=== PATIENT | male | born 1985 | race Caucasian/White ===

== ENCOUNTER 2019-12-13 14:59 | Emergency (ER) | payer OTHER, SELFPAY ==
--- NOTE | 2019-12-13 15:29 | ED.DENTAL ---
HPI - Dental/Oral General Chief complaint: Dental/Oral Stated complaint: Tooth Time Seen by Provider: 12/13/19 15:29 Source: patient and RN notes reviewed History of Present Illness HPI Narrative: Patient is a 34-year-old male who presents the urgent care with complaints of left lower dental pain. Patient states that he has a lot of pain in the left ear as well. Patient states that he is aware he needs wisdom teeth removed and they are supposed to be removed on the of this month. Patient has been taking Tylenol, ibuprofen and using Orajel for the pain. Patient is also been using Peridex mouthwash. No other acute complaints. No acute distress noted. Patient read the plan of care. Related Data Allergies Allergy/AdvReac Type Severity Reaction Status Date / Time No Known Allergies Allergy Unverified 08/23/18 18:37 Review of Systems Review of Systems: Narrative: CONSTITUTIONAL: Denies fever, chills, or sweats. EYES: Denies visual changes, redness, or discharge. ENT: Reports of left otalgia and left lower dental pain CARDIOVASCULAR: Denies chest pain, palpitations, or edema. RESPIRATORY: Denies cough or dyspnea. GASTROINTESTINAL: Denies abdominal pain, nausea, vomiting, or diarrhea. GENITOURINARY: Denies dysuria or hematuria. SKIN: Denies rash or itching. MUSCULOSKELETAL: Denies back pain, joint pain, or myalgia. NEUROLOGIC: Denies headache, numbness, or weakness. All other systems reviewed are negative, except as documented in HPI. [facility] Family History Family History (Updated 12/24/17 @ 10:16 by DOCTOR UNKNOWN) Father Diabetes mellitus Mother Diabetes mellitus Hypertension Social History Social History Smoking status: Never smoker Alcohol intake: never Comments At the time of my signature, I reviewed and agree with the nursing past medical, surgical, social, and family history. There is no relevant family history pertinent to the patient complaint. Exam Narrative: Exam Narrative: GENERAL: This is a well-nourished, well-developed patient, in no apparent distress. HEAD: normocephalic, atraumatic. EYES: PERRL. Sclera clear/white. Vision is grossly intact. EARS: External ears normal, auditory canals clear and without drainage, moderately injected and erythemic left TM with mild effusion, right TM normal without perforation. Hearing grossly intact. NOSE: External nose normal with no obvious nasal discharge, nares without redness, no rhinorrhea. DENTAL: Control avulsion noted to tooth #17 with obvious carious lesions and no notable abscess THROAT: Mucous membranes moist, posterior pharynx clear. NECK: Neck supple SKIN: warm, intact with no suspicious lesions or rash, good texture and turgor. NEURO: awake, alert, and oriented to person, place and time. There were no obvious focal neurologic abnormalities. EXTREMITIES: No clubbing, cyanosis, or edema. Course Vital Signs Vital signs: Vital Signs Temperature 97.0 F L 12/13/19 15:30 Pulse Rate 99 12/13/19 15:30 Respiratory Rate 18 12/13/19 15:30 Blood Pressure 150/94 H 12/13/19 15:30 Pulse Oximetry 100 12/13/19 15:30 Temperature 97.0 F L 12/13/19 15:30 Pulse Rate 99 12/13/19 15:30 Respiratory Rate 18 12/13/19 15:30 Blood Pressure 150/94 H 12/13/19 15:30 Pulse Oximetry 100 12/13/19 15:30 Reviewed?patient is informed that they may have pre-hypertension or hypertension based on a blood pressure reading in the department. I recommend the patient call the primary care provider listed on their discharge instructions or a physician of their choice this week to arrange follow-up for further evaluation of possible pre-hypertension or hypertension. MDM - Dental/Oral MDM Narrative Medical decision making narrative: Advised the patient to complete oral antibiotic regimen as prescribed for left otitis/ear infection. No notable abscess to the dentition however you need to follow-up with a dentist as directed on the for further omar
[2019-12-13 15:30] VITALS: BP 150/94; PULSE 99; RESP 18; TEMP 36.1; O2SAT 100
== END 2019-12-13 15:45 | disposition home or self-care (01) ==
PROVIDERS: Emergency Provider Nurse Practitioner Family
DX: K02.9 Dental caries, unspecified (principal); H66.92 Otitis media, unspecified, left ear; D66 Hereditary factor VIII deficiency
CPT/HCPCS: 99213; G0463

== ENCOUNTER 2021-07-17 09:04 | Emergency (ER) | payer OTHER, SELFPAY ==
[2021-07-17 09:10] VITALS: BP 131/89; PULSE 92; RESP 20; TEMP 36.3; O2SAT 100
--- NOTE | 2021-07-17 09:12 | ED.URI ---
HPI - URI/Sore Throat General Chief Complaint: Upper Respiratory Infection Stated Complaint: Sore Throat Time Seen by Provider: 07/17/21 09:12 Source: patient Mode of arrival: ambulatory Limitations: no limitations History of Present Illness HPI Narrative: 36 yo M presents with c/o sore throat, fatigue since last night. Pt reports that his son and both diagnosed with strep this week. pt afebrile. no other complaints. All systems reviewed and negative except as noted above. Related Data Home Medications Medication Instructions Recorded Confirmed antihemo.FVIII,full length peg unit IV 07/17/21 [Adynovate] escitalopram oxalate 10 mg PO DAILY 07/17/21 07/17/21 propranolol 20 mg PO DAILY 07/17/21 07/17/21 Allergies Allergy/AdvReac Type Severity Reaction Status Date / Time No Known Allergies Allergy Unverified 08/23/18 18:37 Review of Systems Review of Systems: CONSTITUTIONAL: Denies fever, chills, or sweats. Reports fatigue. EYES: Denies visual changes, redness, or discharge. ENT: Denies rhinorrhea, congestion, and ear pain. Reports sore throat. CARDIOVASCULAR: Denies chest pain, palpitations, or edema. RESPIRATORY: Denies cough or dyspnea. GASTROINTESTINAL: Denies abdominal pain, nausea, vomiting, or diarrhea. GENITOURINARY: Denies dysuria or hematuria. SKIN: Denies rash or itching. MUSCULOSKELETAL: Denies back pain, joint pain, or myalgia. NEUROLOGIC: Denies headache, numbness, or weakness. PSYCHIATRIC: Denies anxiety or depression. All other systems reviewed are negative, except as documented in HPI. [facility] Family History Family History (Updated 12/24/17 @ 10:16 by DOCTOR UNKNOWN) Father Diabetes mellitus Mother Diabetes mellitus Hypertension Social History Social History Smoking status: Never smoker Alcohol intake: never Comments At time of signature, agree with nursing past medical, surgical, social and family history. There is no relevant family history pertinent to the presenting complaint. Exam Narrative: GENERAL: This is a well-nourished, well-developed patient, in no apparent distress. HEAD: normocephalic, atraumatic. EYES: PERRL. Sclera clear/white. Vision is grossly intact. EARS: External ears normal, auditory canals clear and without drainage, TMs normal without perforation. Hearing grossly intact. NOSE: External nose normal with no obvious nasal discharge, nares without redness, no rhinorrhea. THROAT: Mucous membranes moist, posterior pharynx erythematous with mild swelling. Tonsils not enlarged. No exudates. NECK: Neck supple, non-tender without lymphadenopathy, masses or thyromegaly. CARDIOVASCULAR: Regular rate and rhythm without murmurs, gallops, or rubs. RESPIRATORY: Clear to auscultation. Breath sounds equal bilaterally. No wheezes, rales, or rhonchi. GASTROINTESTINAL: Abdomen soft, non-tender, nondistended. Bowel sounds are active. No hepato-splenomegaly, or palpable masses. No guarding. SKIN: warm, Dry, intact with no suspicious lesions or rash, good texture and turgor. NEURO: awake, alert, and oriented to person, place and time. There were no obvious focal neurologic abnormalities. EXTREMITIES: No joint tenderness, effusion, or edema noted. No calf tenderness. Negative Homans sign bilaterally. BACK: Nontender without deformity. No CVA tenderness. Course Course Level of Care: Express Care Visit Vital Signs Vital signs: Vital Signs Temperature 36.3 C L 07/17/21 09:10 Pulse Rate 92 07/17/21 09:10 Respiratory Rate 20 07/17/21 09:10 Blood Pressure 131/89 07/17/21 09:10 Pulse Oximetry 100 07/17/21 09:10 Temperature 36.3 C L 07/17/21 09:10 Pulse Rate 92 07/17/21 09:10 Respiratory Rate 20 07/17/21 09:10 Blood Pressure 131/89 07/17/21 09:10 Pulse Oximetry 100 07/17/21 09:10 Reviewed MDM - URI/Sore Throat MDM Narrative Medical decision making narrative: Patient is aware of diagnosis, understands and agrees to treatment plan
== END 2021-07-17 09:38 | disposition home or self-care (01) ==
PROVIDERS: Emergency Provider Nurse Practitioner Family
DX: J02.9 Acute pharyngitis, unspecified (principal); Z20.818 Contact with and (suspected) exposure to other bacterial communicable diseases
CPT/HCPCS: 87081; 87880; 99213; G0463

== ENCOUNTER 2022-02-24 09:16 | Emergency (ER) | payer BC, SELFPAY ==
[2022-02-24 09:21] VITALS: BP 128/77; PULSE 89; RESP 14; TEMP 36.2; O2SAT 99
--- NOTE | 2022-02-24 10:27 | ED.URI ---
HPI - URI/Sore Throat General Chief Complaint: Upper Respiratory Infection Stated Complaint: Sore throat and upset stomach Time Seen by Provider: 02/24/22 10:05 Source: patient, RN notes reviewed and old records reviewed Mode of arrival: ambulatory Limitations: no limitations History of Present Illness HPI Narrative: 36 year old male who presents to express care with sore throat and nausea since yesterday with increased difficulty with swallowing.. Patient reports positive exposure to strep at work.Patient voices pain to throat rates 5/10, denies any sinus congestion or drainage, no ear pain or any cough. Patient states that he has been using cough drops to sooth his throat pain, states he is unable to swallow Tylenol tabs or Motrin presently. MD elicited complaint: sore throat and other (nausea) Pertinent past history: other (strep throat) Onset (ago): day(s) (day 2 of symptoms) Pain scale (0-10): 5 Treatments prior to arrival: other (cough drops) Related Data Home Medications Medication Instructions Recorded Confirmed atorvastatin 40 mg tablet 40 mg DAILY 02/24/22 02/24/22 escitalopram oxalate 20 mg tablet 20 mg DAILY 02/24/22 02/24/22 Allergies Allergy/AdvReac Type Severity Reaction Status Date / Time No Known Allergies Allergy Unverified 08/23/18 18:37 Review of Systems Review of Systems: CONSTITUTIONAL Report malaise, chills, sweats, unknown if fever. EYES: Denies visual changes, redness, or discharge. ENT: Denies rhinorrhea, congestion, sinus pain, otalgia positive for sore throat. CARDIOVASCULAR: Denies chest pain, palpitations, or edema. RESPIRATORY: Denies cough.? Denies dyspnea. GASTROINTESTINAL: Denies abdominal pain,reports nausea,no vomiting, diarrhea SKIN: Denies rash or itching. MUSCULOSKELETAL: Denies myalgia. NEUROLOGIC: Denies headache. All systems reviewed & are unremarkable except as noted in HPI and below PMFSH Past Medical History Medical History (Updated 02/26/22 @ 10:42 by Naty Larios NP) Anxiety and depression Elevated cholesterol Strep throat Family History Family History Father Diabetes mellitus Mother Diabetes mellitus Hypertension Social History Social History (Updated 02/26/22 @ 10:40 by Naty Larios NP) Smoking status: Never smoker Alcohol intake: never Substance use type: does not use Living arrangements: with family Gender identity (if verbalized by the patient): Male Comments At time of signature, agree with nursing past medical, surgical, social and family history. There is no relevant family history pertinent to the presenting complaint Exam Narrative: GENERAL: Well-appearing, well-nourished, and in no acute distress. HEAD: Normocephalic EYES: PERRLA, conjunctivae clear ENT: Nares clear, turbinates edematous and erythematous, clear discharge. Mucous membranes moist. TM pearly kendrick with dull light reflex bilaterally; no tragal tenderness. Oropharynx erythematous without lesions. Tonsils red and enlarged and without exudate, no drooling, no hoarseness, no trismus, uvula midline. NECK: Supple. lymphadenopathy CHEST: Clear to auscultation, breath sounds equal. No wheezing, rhonchi, rales, or stridor. No respiratory distress, speaks in full sentences.SAO2 99% on room air HEART: Regular rate and rhythm. No murmur heard. SKIN: Warm, dry, no rash. NEURO: Alert and oriented x3. PSYCH: Normal mood and affect Course Course Emergency Course: Patient is aware of diagnosis, understands and agrees to treatment plan.? Anticipatory guidance given.? Patient agrees to follow-up as directed and is aware of reasons to seek care at the emergency department. Portions of this record may have been created with voice recognition software Level of Care: Express Care Visit Vital Signs Vital signs: Vital Signs Temperature 36.2 C L 02/24/22 09:21 Pulse Rate 89 02/24
== END 2022-02-24 10:50 | disposition home or self-care (01) ==
PROVIDERS: Emergency Provider Registered Nurse
DX: J03.90 Acute tonsillitis, unspecified (principal); Z20.818 Contact with and (suspected) exposure to other bacterial communicable diseases; E78.00 Pure hypercholesterolemia, unspecified; F41.9 Anxiety disorder, unspecified; F32.A Depression, unspecified
CPT/HCPCS: 87081; 87880; 99213; G0463

== ENCOUNTER 2022-12-14 11:23 | Emergency (ER) | payer BC, SELFPAY ==
[2022-12-14 11:30] VITALS: BP 145/93; PULSE 94; RESP 18; TEMP 36.7; O2SAT 100
--- NOTE | 2022-12-14 11:36 | ED.GENADULT ---
HPI - General Adult General Chief complaint: Ear Stated complaint: Ear Pain Time Seen by Provider: 12/14/22 11:36 Source: patient, RN notes reviewed and old records reviewed Mode of arrival: ambulatory Limitations: no limitations History of Present Illness HPI narrative: 37-year-old male presents to the [facility] with complaints of left ear pain for 1 week. Patient states that when it started he did telehealth doctor visit and was prescribed ear drops. Denies any fevers. States the pain feels deeper inside. Treatments prior to arrival: other (Ear drops) Related Data Home Medications Medication Instructions Recorded Confirmed antihemo.FVIII,full length peg See Rx Instructions .Route .COMPLEX 12/14/22 12/14/22 1,000(+/-) unit IV solution (Adynovate) ofloxacin 0.3 % ear drops drp 12/14/22 12/14/22 Allergies Allergy/AdvReac Type Severity Reaction Status Date / Time No Known Allergies Allergy Unverified 12/14/22 11:40 Review of Systems Review of Systems: All systems reviewed & are unremarkable except as noted in HPI and below Constitutional: Constitutional: Reports no additional constitutional complaints Eyes: Eyes: Reports no additional eye complaints ENT: Reports as per HPI and Reports otalgia (Left) Cardiovascular: Cardiovascular: Reports no additional cardiovascular complaints, Denies chest pain and Denies dyspnea Respiratory: Respiratory: Reports no additional respiratory complaints, Denies chest congestion, Denies cough and Denies dyspnea Gastrointestinal: Gastrointestinal: Reports no additional gastrointestinal complaints, Denies abdominal pain, Denies nausea and Denies vomiting Musculoskeletal: Musculoskeletal: Reports no additional musculoskeletal complaints Integumentary/Breasts: Skin/Breast: Reports system reviewed and no additional complaints, except as docu Neurologic: Reports system reviewed and no additional complaints, except as documented Psychiatric: Psychiatric: Reports no additional psychiatric complaints Allergic/Immunologic: Allergic/Immunologic: Reports no additional allergic/immunologic complaints PMFSH Past Medical History Medical History Anxiety and depression Elevated cholesterol Strep throat Family History Family History Father Diabetes mellitus Mother Diabetes mellitus Hypertension Social History Social History Smoking status: Never smoker Alcohol intake: never Substance use type: does not use Living arrangements: with family Gender identity (if verbalized by the patient): Male Comments At the time of my signature, I reviewed and agree with the nursing past medical, surgical, social, and family history. There is no relevant family history pertinent to the patient complaint. Exam Const: General: cooperative, healthy appearing, comfortable, no acute distress, well developed, alert and well nourished Nutritional Appearance: well nourished and obese Orientation/consciousness: patient oriented x3 Limitations: no limitations HENMT: Head: normal to inspection Ears: hearing grossly normal bilaterally, external ears normal, TM normal on the right, mastoids normal bilaterally, Abnormal EAC present erythema on the left; no edema and no otic discharge and TM abnormal bulging on the left and erythematous on the left Face/Nose/Sinus: Normal external nose present, Normal nares present, Normal nasal mucous membranes and turbinates present, normal facial exam and face symmetric Face and sinus: normal facial exam Mouth: Yes Normal oral and palatal mucosa present, Yes lip normal and Yes moist mucous membranes Throat: posterior oropharynx normal and uvula midline Eyes: General: appearance normal, both eyes and all related structures Alignment and Position: alignment normal Periorbital: periorbital find
== END 2022-12-14 11:50 | disposition home or self-care (01) ==
PROVIDERS: Emergency Provider Nurse Practitioner
DX: H66.002 Acute suppurative otitis media without spontaneous rupture of ear drum, left ear (principal); H60.502 Unspecified acute noninfective otitis externa, left ear; E78.00 Pure hypercholesterolemia, unspecified
CPT/HCPCS: 99213; G0463

== ENCOUNTER 2022-12-26 12:50 | Emergency (ER) | payer BC, SELFPAY ==
[2022-12-26 12:56] VITALS: BP 143/95; PULSE 105; RESP 18; TEMP 36.4; O2SAT 100
[2022-12-26 14:32] VITALS: BP 147/95; PULSE 102; RESP 18; O2SAT 99
[2022-12-26 16:34] VITALS: BP 142/87; PULSE 91; RESP 18; O2SAT 100
--- NOTE | 2022-12-26 17:13 | ED.EAR ---
HPI - Ear Problem General Chief complaint: Ear Stated complaint: Ear Time Seen by Provider: 12/26/22 16:59 Source: patient Mode of arrival: ambulatory Limitations: no limitations History of Present Illness HPI Narrative: This is a 37 year old male that presents to the ER for ear pain. Ongoing over the last 3 weeks. Reports he did an online consultation was prescribed an ear drop. He finished these and had continued pain. He went to see his primary provider and was prescribed drops and oral antibiotic. He has finished these with continued dull, achy pain and pressure in his left ear. Also reports some left-sided neck pain. No known injury or trauma. Does report he has to walk down a lot while at work, was wondering if he may be strained a muscle. Denies fevers or erythema. Related Data Home Medications Medication Instructions Recorded Confirmed antihemo.FVIII,full length peg See Rx Instructions .Route .COMPLEX 12/14/22 12/14/22 1,000(+/-) unit IV solution (Adynovate) ofloxacin 0.3 % ear drops drp 12/14/22 12/14/22 Allergies Allergy/AdvReac Type Severity Reaction Status Date / Time No Known Allergies Allergy Verified 12/26/22 14:36 Review of Systems Review of Systems: CONSTITUTIONAL: Denies fever ENT: Court congestion, and otalgia. All systems reviewed & are unremarkable except as noted in HPI and below PMFSH Past Medical History Medical History Anxiety and depression Elevated cholesterol Strep throat Family History Family History Father Diabetes mellitus Mother Diabetes mellitus Hypertension Social History Social History Smoking status: Never smoker Alcohol intake: never Substance use type: does not use Living arrangements: with family Gender identity (if verbalized by the patient): Male Exam Narrative: GENERAL: Well-appearing, well-nourished, and in no acute distress. HEAD: Normocephalic, atraumatic. EYES: EOMI. ENT: Nares clear, no rhinorrhea or epistaxis. Mucous membranes moist. Oropharynx without tonsillar hypertrophy exudate or other lesions. Bilateral TMs pearly kendrick non-bulging. Clear fluid noted behind the TMs bilaterally. No erythema. Bilateral external auditory canals are normal. No mastoid erythema or swelling NECK: Supple. No adenopathy or masses. Pain along the left trapezius musculature CHEST: Clear to auscultation. No respiratory distress. No wheezes rales or rhonchi HEART: Regular rate and rhythm. No murmur heard. Normal peripheral pulses. EXTREMITIES: Normal range of motion. No edema. SKIN: Warm, dry, no rash. NEURO: No focal deficits. Alert and oriented x3. PSYCH: Normal mood and affect Course Course Emergency Course: Patient agrees with plan of care Vital Signs Vital signs: Vital Signs Temperature 97.5 F L 12/26/22 12:56 Pulse Rate 105 H 12/26/22 12:56 Respiratory Rate 18 12/26/22 12:56 Blood Pressure 143/95 H 12/26/22 12:56 Pulse Oximetry 100 12/26/22 12:56 Oxygen Delivery Room Air 12/26/22 12:56 Temperature 97.5 F L 12/26/22 12:56 Pulse Rate 91 12/26/22 16:34 Respiratory Rate 18 12/26/22 16:34 Blood Pressure 142/87 H 12/26/22 16:34 Pulse Oximetry 100 12/26/22 16:34 Oxygen Delivery Room Air 12/26/22 12:56 Medical Decision Making MDM Narrative Medical decision making narrative: Patient presents to the emergency department for left-sided ear pain and pressure. Ongoing over the last several weeks. He is afebrile and nontoxic appearing. His external auditory canal is normal. He does have clear fluid noted behind the TM, that is not red or bulging. Patient endorsing some congestion and sinus issues, will be instructed on use of antihistamines and nasal steroid. Will be given ENT for follow-up. He was given warnings to return t
== END 2022-12-26 17:46 | disposition home or self-care (01) ==
PROVIDERS: Emergency Provider Physician Assistant
DX: H92.02 Otalgia, left ear (principal); E78.00 Pure hypercholesterolemia, unspecified
CPT/HCPCS: 99281

== ENCOUNTER 2024-03-05 12:13 | Emergency (ER) | payer OTHER, SELFPAY ==
[2024-03-05 12:22] VITALS: BP 128/84; PULSE 88; RESP 18; TEMP 36.3; O2SAT 99
--- NOTE | 2024-03-05 13:44 | ED_ITS ---
HPI - URI/Sore Throat General Chief Complaint: Upper Respiratory Infection Stated Complaint: Sore Throat Time Seen by Provider: 03/05/24 13:20 Source: patient, RN notes reviewed and old records reviewed Mode of arrival: ambulatory Limitations: no limitations History of Present Illness HPI Narrative: 38 year old male who presents to [facility] care with complaints of sore throat, sinus congestion with pressure, states it hurts to swallow which he reports started last night.Patient reports no known fevers, body aches or chills denies ant acute cough, Patient reports that he has not taken any OTC medications hurts to bad to swallow.Patient request medication in liquid form states he won't be able to swallow large pills. MD elicited complaint: sore throat, rhinorrhea, nasal congestion and sinus pain Onset (ago): day(s) (since last night ) Consistency: constant Pain scale (0-10): 5 Exacerbating factors: swallowing Treatments prior to arrival: none Related Data Allergies Allergy/AdvReac Type Severity Reaction Status Date / Time aspirin AdvReac Unknown Unknown Verified 02/01/23 08:46 NSAIDS (Non-Steroidal AdvReac Unknown Unknown Verified 02/01/23 08:46 Anti-Inflamma Review of Systems Review of Systems: CONSTITUTIONAL: Denies malaise, chills, sweats, or fever. EYES: Denies visual changes, redness, or discharge. ENT: Reports rhinorrhea, congestion, sinus pain, no otalgia and positive for sore throat. CARDIOVASCULAR: Denies chest pain, palpitations, or edema. RESPIRATORY: Reports no acute cough.? Denies dyspnea. GASTROINTESTINAL: Denies abdominal pain, nausea, vomiting, diarrhea SKIN: Denies rash or itching. MUSCULOSKELETAL: Denies myalgia. NEUROLOGIC: Denies headache. All systems reviewed & are unremarkable except as noted in HPI and below PMFSH Past Medical History Medical History Anxiety and depression Elevated cholesterol Generalized anxiety disorder with panic attacks Hemophilia Metabolic syndrome Moderate episode of recurrent major depressive disorder Panic attacks Severe obesity Sleep disorder Strep throat Family History Family History Father Diabetes mellitus Mother Diabetes mellitus Hypertension Asthma Social History Social History Social History: Caffeine- soda Smoking status: Never smoker Alcohol intake: never Substance use: never Substance use type: does not use Lack of Transportation: No Lack of Food: Never True Current Housing: I Have Housing Concerned About Future Housing: No Difficulty Paying Gas/Electric Bills: No Difficulty Paying for Meds: No Currently Unemployed: YES Education: High School Diploma/GED Difficulty w/ Childcare or Family Care: No Living arrangements: with family Gender identity (if verbalized by the patient): Male Agree to blood products: Yes Comments At time of signature, agree with nursing past medical, surgical, social and family history. There is no relevant family history pertinent to the presenting complaint Exam Narrative: GENERAL: Well-appearing, well-nourished, and in no acute distress. HEAD: Normocephalic EYES: PERRLA, conjunctivae clear ENT: Nares clear, turbinates edematous and erythematous, clear discharge. Mucous membranes moist. TM pearly kendrick with dull light reflex bilaterally; no tragal tenderness. Oropharynx erythematous without lesions. Tonsils red enlarged and without exudate, no drooling, no hoarseness, no trismus, uvula midline.painful swallowing NECK: Supple. lymphadenopathy CHEST: Clear to auscultation, breath sounds equal. No wheezing, rhonchi, rales, or stridor. No respiratory distress, speaks in full sentences.SAO2 99% on room air HEART: Regular rate and rhythm. No murmur heard. SKIN: Warm, dry, no rash. NEURO: Alert and oriented x3. PSYCH: Normal mood and affect Course Course Emergency Course: Patient is aware of diagnosis, understands and agrees to treatment plan.? Anticipatory guidance given.? Patient agrees to follow-up as directed and is aware of reasons to seek care at the emergency department. Portions of this record may have been created with voice recognition software Level of Care: Express Care Visit Vital Signs Vital signs: Vital Signs Temperature 36.3 C L 03/05/24 12:22 Pulse Rate 88 03/05/24 12:22 Respiratory Rate 18 03/05/24 12:22 Blood Pressure 128/84 03/05/24 12:22 Pulse Oximetry 99 03/05/24 12:22 Oxygen Delivery Room Air 03/05/24 12:22 Temperature 36.3 C L 03/05/24 12:22 Pulse Rate 88 03/05/24 12:22 Respiratory Rate 18 03/05/24 12:22 Blood Pressure 128/84 03/05/24 12:22 Pulse Oximetry 99 03/05/24 12:22 Oxygen Delivery Room Air 03/05/24 12:22 Reviewed MDM - URI/Sore Throat MDM Narrative Medical decision making narrative: Differential diagnosis considered: Archer virus, strep pharyngitis, allergic rhinitis, upper respiratory tract infection, sinusitis, rhinosinusitis, nasopharyngitis. viral pharyngitis, otitis media, otitis externa, pneumonia, bronchitis, viral cough syndrome, viral syndrome, and influenza.? Exam findings show no acute concerns or changes; patient is non-toxic appearing and is in no distress.? Patient is appropriate for outpatient treatment and follow-up. Differential Diagnosis Differential diagnosis: Likely upper respiratory infection, viral infection, pharyngitis and other (strep pharyngitis, acute tonsillitis) Medical Records Attestation: I reviewed the patient's medical records. Lab Data Attestation: I reviewed the patient's lab results. Lab results narrative: strep screen negative, culture sent, Influenza A negative, Influenza B negative, COVID antigen negative Labs: Lab Results 03/05/24 Range/Units 14:00 POC Influenza A Ag Negative (Negative) POC Influenza B Ag Negative (Negative) POC SARS CoV-2 Ag Negative (Negative) POC Grp A Strep Screen Negative (Negative) reviewed Critical Care Time Critical Care Time Critical Care Time: No Discharge Plan Discharge Clinical Impression: Acute tonsillitis Qualifiers: Pharyngitis/tonsillitis etiology: unspecified etiology Qualified Code(s): J03.90 - Acute tonsillitis, unspecified Difficulty in swallowing Qualifiers: Dysphagia type: unspecified Qualified Code(s): R13.10 - Dysphagia, unspecified Patient Disposition: Home, Self-Care Condition: Stable Instructions: Antibiotic Form Additional Instructions: . Take the entire course of antibiotics. Throw away your current toothbrush and begin using a new toothbrush in 48 hours in order to prevent re-infection. Sanitize all reusable water bottles . Do not share items with others. Salt water gargles may alleviate some of the throat discomfort. You can take Tylenol or ibuprofen per the package instructions for pain/fever. If your symptoms persist, change or worsen significantly before you can contact your personal physician then please, without delay, go to the emergency department for further evaluation. Follow-up with PCP in 7-10 days or sooner if needed Follow up with PCP soon in regards to your blood pressure which is elevated above threshold for referral. Blood pressure above 120/80 may indicate pre- hypertension. 128/84 Prescriptions: New cephalexin 250 mg/5 mL suspension for reconstitution 500 mg PO Q12H 10 Days Qty: 200 0RF Rx Instructions: take all of prescription methylprednisolone [Medrol (Ton)] 4 mg tablets,dose pack See Rx Instructions .ROUTE .COMPLEX Qty: 21 0RF Rx Instructions: orally per package directions Follow-up/Referrals: PHYSICIAN NOT ON STAFF,NONSTAFF [Primary Care Provider] - Time of Disposition: 13:53 Quality [place] Coma Scale Eyes: Open Verbal: Oriented and Alert Motor: Follows Commands [place] Coma Total Score: 15
[2024-03-05 14:03] LABS: EDCOVIDSCREEN Negative (Negative); EDINFLUASCREEN Negative (Negative); EDINFLUBSCREEN Negative (Negative); EDSTREPNEGPOS1 Negative (Negative)
== END 2024-03-05 14:00 | disposition home or self-care (01) ==
PROVIDERS: Emergency Provider Registered Nurse
DX: J03.90 Acute tonsillitis, unspecified (principal); R13.10 Dysphagia, unspecified; Z20.822 Contact with and (suspected) exposure to COVID-19; E78.00 Pure hypercholesterolemia, unspecified; E88.810 Metabolic syndrome; E66.01 Morbid (severe) obesity due to excess calories; Z68.39 Body mass index [BMI] 39.0-39.9, adult
CPT/HCPCS: 87081; 87426; 87804; 87880; 99213; G0463